=== PATIENT | male | born 1965 | race Caucasian/White ===

== ENCOUNTER 2018-08-17 23:29 | Emergency (ER) | payer OTHER ==
[2018-08-17] MEDS ORDERED: Sodium Chloride 0.9% 1,000 ML IV SCH (23:45)
[2018-08-17] MEDS ORDERED: Ondansetron 4 MG/2 ML SDV IVPUSH ONE (23:46)
[2018-08-17] MEDS ORDERED: HYDROmorphone 0.5 MG/0.5 ML Syringe IVPUSH ONE (23:46)
--- NOTE | 2018-08-18 01:12 | EDM.PDOC ---
ED HPI GENERAL MEDICAL PROBLEM - General Chief Complaint: Abdominal Pain Stated Complaint: ABDOMINAL PAIN Time Seen by Provider: 08/17/18 23:35 Source of Information: Reports: Patient, Family History Limitations: Reports: No Limitations - History of Present Illness INITIAL COMMENTS - FREE TEXT/NARRATIVE: pt is having severe rt sided abdomanal pin--mid abdoman. Onset: Other (pt had a earlier episode 2 days ago but today the pain was very severe. ) Duration: Hour(s): Location: Reports: Abdomen Associated Symptoms: Reports: Other ( severe abdomanal pain. ) lower abd Pain Score (Numeric/FACES): 8 - Related Data Allergies Allergy/AdvReac Type Severity Reaction Status Date / Time amoxicillin Allergy Rash Verified 08/17/18 23:35 Home Meds: Home Meds Omeprazole Magnesium [Prilosec Otc] 20 mg PO DAILY 08/17/18 [History] Past Medical History Gastrointestinal History: Reports: GERD - Past Surgical History GI Surgical History: Reports: Justin Fundoplication Social & Family History - Tobacco Use Smoking Status *Q: Never Smoker - Caffeine Use Caffeine Use: Reports: Coffee - Alcohol Use Days Per Week of Alcohol Use: 3 Number of Drinks Per Day: 3 Total Drinks Per Week: 9 - Recreational Drug Use Recreational Drug Use: No ED ROS GENERAL - Review of Systems Review Of Systems: See Below Constitutional: Reports: No Symptoms HEENT: Reports: No Symptoms Respiratory: Reports: No Symptoms Cardiovascular: Reports: No Symptoms Endocrine: Reports: No Symptoms GI/Abdominal: Reports: Abdominal Pain Musculoskeletal: Reports: No Symptoms Skin: Reports: No Symptoms ED EXAM, GI/ABD - Physical Exam Exam: See Below Text/Narrative:: pt arrived with pain in the midto upper abdoman. He states this came on very acutely tonight. He did not vomit. He has had a previous [place]. He has been having normal bms. He does have alot of Gerd. Exam Limited By: No Limitations General Appearance: Alert, Moderate Distress Ears: Normal TMs Nose: Normal Inspection Throat/Mouth: Normal Inspection Head: Atraumatic Neck: Normal Inspection Respiratory/Chest: No Respiratory Distress Cardiovascular: Regular Rate, Rhythm GI/Abdominal Exam: Other (pt complains of pain in the area just below the umbilus. He is tender in the epigastric area. ) (Male) Exam: Deferred Rectal (Males) Exam: Deferred Back Exam: Normal Inspection Extremities: Normal Inspection Neurological: Alert, Oriented, Normal Cognition Psychiatric: Normal Affect Course - Vital Signs Last Recorded V/S: Last Vital Signs Temp 36.1 C 08/18/18 01:39 Pulse 76 08/18/18 01:39 Resp 16 08/18/18 01:39 BP 133/87 08/18/18 01:39 Pulse Ox 100 08/18/18 01:39 - Orders/Labs/Meds Orders: Active Orders 24 hr Category Date Time Status Sodium Chloride 0.9% [Normal Saline] 1,000 ml Med 08/17/18 23:45 Active IV ASDIRECTED Sodium Chloride 0.9% [Normal Saline] 1,000 ml Med 08/18/18 01:15 Active IV ASDIRECTED Medication Orders Sodium Chloride (Normal Saline) 1,000 mls @ 999 mls/hr IV ASDIRECTED OSMIN Last Admin: 08/18/18 00:06 Dose: 999 mls/hr Sodium Chloride (Normal Saline) 1,000 mls @ 999 mls/hr IV ASDIRECTED OSMIN Last Admin: 08/18/18 01:16 Dose: 999 mls/hr Labs: Laboratory Tests 08/17/18 08/17/18 08/17/18 Range/Units 23:47 23:55 23:55 WBC 4.2 L (4.5-11.0) K/uL RBC 4.53 (4.30-5.90) M/uL Hgb 14.2 (12.0-15.0) g/dL Hct 41.3 (40.0-54.0) % MCV 91 (80-98) fL MCH 31 (27-31) pg MCHC 34 (32-36) % Plt Count 178 (150-400) K/uL Neut % (Auto) 56 (36-66) % Lymph % (Auto) 34 (24-44) % [place] % (Auto) 8 H (2-6) % Eos % (Auto) 2 (2-4) % Baso % (Auto) 0 (0-1) % Sodium 141 (140-148) mmol/L Potassium 4.1 (3.6-5.2) mmol/L Chloride 104 (100-108) mmol/L Carbon Dioxide 27 (21-32) mmol/L Anion Gap 9.6 (5.0-14.0) mmol/L BUN 14 (7-18) mg/dL Creatinine 1.1 (0.8-1.3) mg/dL Est Cr Clr Drug Dosing 94.25 mL/min Estimated GFR (MDRD) > 60 (>60) Glucose 102 (74-106) mg/dL Calcium 8.8 (8.5-10.1) mg/dL Total Bilirubin 0.6 (0.2-1.0) mg/dL AST 12 L (15-37) U/L ALT 18 (12-78) U/L Alkaline Phosphatase 52 (46-116) U/L C-Reactive Protein 0.05 (0.0-0.3) mg/dL Total Protein 7.0 (6.4-8.2) g/dL Albumin 3.8 (3.4-5.0) g/dL Globulin 3.2 (2.3-3.5) g/dL Albumin/Globulin Ratio 1.2 (1.2-2.2) Amylase (25-115) U/L Lipase 137 (73-393) U/L Urine Color Urine Appearance Urine pH (4.5-8.0) Ur Specific [place] (1.008-1.030) Urine Protein (NEGATIVE) mg/dL Urine Glucose (UA) (NEGATIVE) mg/dL Urine Ketones (NEGATIVE) mg/dL Urine Occult Blood (NEGATIVE) Urine Nitrite (NEGAITVE) Urine Bilirubin (NEGATIVE) Urine Urobilinogen (NORMAL) mg/dL Ur Leukocyte Esterase (NEGATIVE) Urine RBC (0-5) Urine WBC (0-5) Ur Epithelial Cells Amorphous Sediment Urine Bacteria Urine Mucus 08/17/18 08/18/18 Range/Units 23:55 01:02 WBC (4.5-11.0) K/uL RBC (4.30-5.90) M/uL Hgb (12.0-15.0) g/dL Hct (40.0-54.0) % MCV (80-98) fL MCH (27-31) pg MCHC (32-36) % Plt Count (150-400) K/uL Neut % (Auto) (36-66) % Lymph % (Auto) (24-44) % [place] % (Auto) (2-6) % Eos % (Auto) (2-4) % Baso % (Auto) (0-1) % Sodium (140-148) mmol/L Potassium (3.6-5.2) mmol/L Chloride (100-108) mmol/L Carbon Dioxide (21-32) mmol/L Anion Gap (5.0-14.0) mmol/L BUN (7-18) mg/dL Creatinine (0.8-1.3) mg/dL Est Cr Clr Drug Dosing mL/min Estimated GFR (MDRD) (>60) Glucose (74-106) mg/dL Calcium (8.5-10.1) mg/dL Total Bilirubin (0.2-1.0) mg/dL AST (15-37) U/L ALT (12-78) U/L Alkaline Phosphatase (46-116) U/L C-Reactive Protein (0.0-0.3) mg/dL Total Protein (6.4-8.2) g/dL Albumin (3.4-5.0) g/dL Globulin (2.3-3.5) g/dL Albumin/Globulin Ratio (1.2-2.2) Amylase 41 (25-115) U/L Lipase (73-393) U/L Urine Color Yellow Urine Appearance Clear Urine pH 7.0 (4.5-8.0) Ur Specific [place] 1.010 (1.008-1.030) Urine Protein Negative (NEGATIVE) mg/dL Urine Glucose (UA) Normal (NEGATIVE) mg/dL Urine Ketones Negative (NEGATIVE) mg/dL Urine Occult Blood Negative (NEGATIVE) Urine Nitrite Negative (NEGAITVE) Urine Bilirubin Negative (NEGATIVE) Urine Urobilinogen Normal (NORMAL) mg/dL Ur Leukocyte Esterase Negative (NEGATIVE) Urine RBC 0-5 (0-5) Urine WBC 0-5 (0-5) Ur Epithelial Cells Few Amorphous Sediment Not seen Urine Bacteria Few Urine Mucus Moderate Meds: Medications Generic Name Dose Route Start Last Admin Trade Name Freq PRN Reason Stop Dose Admin Sodium Chloride 1,000 mls @ 999 mls/hr 08/17/18 23:45 08/18/18 00:06 Normal Saline IV 999 mls/hr ASDIRECTED OSMIN Administration Sodium Chloride 1,000 mls @ 999 mls/hr 08/18/18 01:15 08/18/18 01:16 Normal Saline IV 999 mls/hr ASDIRECTED OSMIN Administration Discontinued Medications Generic Name Dose Route Start Last Admin Trade Name Freq PRN Reason Stop Dose Admin Al Hydroxide/Mg Hydroxide 15 0 ml 08/18/18 02:11 08/18/18 02:18 ml/ Lidocaine HCl 15 ml PO 08/18/18 02:12 30 ml ONETIME ONE Administration Hydromorphone HCl 0.5 mg 08/17/18 23:46 08/18/18 00:04 Dilaudid IVPUSH 08/17/18 23:47 0.5 mg ONETIME ONE Administration Hydromorphone HCl 0.5 mg 08/18/18 01:51 08/18/18 02:18 Dilaudid IVPUSH 08/18/18 01:52 Not Given ONETIME ONE Hydromorphone HCl 1 mg 08/18/18 02:35 Dilaudid IVPUSH 08/18/18 02:36 ONETIME ONE Ondansetron HCl 4 mg 08/17/18 23:46 08/18/18 00:04 Zofran IVPUSH 08/17/18 23:47 4 mg ONETIME ONE Administration Pantoprazole Sodium 40 mg 08/18/18 02:33 Protonix Iv IVPUSH 08/18/18 02:34 ONETIME ONE - Re-Assessments/Exams Free Text/Narrative Re-Assessment/Exam: 08/18/18 02:18 pt was found to have normal lab work. His urine was clear. Lipase and amylase was normal. A cat scan of the abdoman was obtained which did not show acute problems. He does have ventral hernia but not bowel is present in it. He has a left sided inguinal hernia--direct. There is no bowel in any of the hernias. Pt was given a GI cocktail. He did not get relieve with that. 08/18/18 02:29 Departure - Departure Time of Disposition: 02:34 Disposition: Admitted As Inpatient 65 Condition: Fair Clinical Impression: Abdominal pain - Discharge Information Referrals: PCP,None [Primary Care Provider] - Forms: ED Department Discharge Care Plan Goals: admit to Dr Weiss. - My Orders Last 24 Hours: My Active Orders 08/17/18 23:45 Sodium Chloride 0.9% [Normal Saline] 1,000 ml IV ASDIRECTED 08/18/18 01:15 Sodium Chloride 0.9% [Normal Saline] 1,000 ml IV ASDIRECTED - Assessment/Plan Last 24 Hours: My Active Orders 08/17/18 23:45 Sodium Chloride 0.9% [Normal Saline] 1,000 ml IV ASDIRECTED 08/18/18 01:15 Sodium Chloride 0.9% [Normal Saline] 1,000 ml IV ASDIRECTED
[2018-08-18] MEDS ORDERED: Sodium Chloride 0.9% 1,000 ML IV SCH ×3 (01:15→03:30)
[2018-08-18] MEDS ORDERED: HYDROmorphone 0.5 MG/0.5 ML Syringe IVPUSH ONE (01:51)
--- NOTE | 2018-08-18 01:55 | CRLCT ---
INDICATION: Right-sided abdominal pain TECHNIQUE: CT abdomen and pelvis without contrast. COMPARISON: None. FINDINGS: Lower chest: Trace subsegmental atelectasis lung bases. Coronary atherosclerosis. Small hiatal hernia status post gastroesophageal surgery. Liver: Normal in size and attenuation. No masses. Gallbladder and bile ducts: No stones or inflammation. No biliary dilatation. Pancreas: Mild pancreatic atrophy. Spleen: Normal in size. No masses. Adrenal glands: Normal in size. No nodules. Kidneys: 9 millimeter cyst at the upper pole right kidney. 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 GI tract: Hiatal hernia status post gastroesophageal surgery. No dilated loops of large or small intestine. The appendix is identified and is unremarkable. Vasculature: Minimal atherosclerosis without abdominal aortic aneurysm. Lymph nodes: No lymphadenopathy. Abdominal wall/Omentum/Peritoneum: Fat containing epigastric ventral hernia. Fat containing left direct inguinal hernia. Pelvis: Unremarkable. No pelvic masses. Bones: Degenerative disc disease lumbar spine. IMPRESSION: 1. No evidence of hydronephrosis or nephrolithiasis. 2. No acute findings to explain the patient`s abdominal pain. No dilated bowel or focal inflammation. 3. Fat containing ventral epigastric and left direct inguinal hernias. 4. Hiatal hernia. Please note that all CT scans at this facility use dose modulation, iterative reconstruction, and/or weight-based dosing when appropriate to reduce radiation dose to as low as reasonably achievable. Dictated by Art Collins MD @ Aug 18 2018 1:46AM Signed by Dr. Art Collins @ Aug 18 2018 1:54AM
[2018-08-18] MEDS ORDERED: Alum Hydrox/Mag Hydrox/Simeth 15 ML, Lidocaine 2% 15 ML PO ONE ×2 (02:11)
[2018-08-18] MEDS ORDERED: Pantoprazole 40 MG Vial IVPUSH ONE (02:33)
[2018-08-18] MEDS ORDERED: HYDROmorphone 1 MG/ML Syringe IVPUSH ONE (02:35)
[2018-08-18] MEDS ORDERED: Ondansetron 4 MG/2 ML SDV IV PRN (03:20)
[2018-08-18] MEDS ORDERED: HYDROmorphone 1 MG/ML Syringe IVPUSH PRN (03:25)
--- NOTE | 2018-08-18 04:05 | HP ---
CHIEF COMPLAINT: Epigastric abdominal pain. HISTORY OF PRESENT ILLNESS: A 53-year-old who 2 days ago had some mid upper abdominal discomfort, was able to get through it, doing fine until tonight where he had to get up to go to the bathroom and then could not get back to sleep because he started having periumbilical pain, epigastric pain, came into the emergency room for further evaluation. Denies any significant nausea or vomiting. No diarrhea or constipation, bloody black stools. No urinary problems. No fevers. He is status post Justin fundoplication about 15 years ago for reflux and has had ongoing problems with reflux and has maintained on omeprazole. PAST MEDICAL HISTORY: Gastroesophageal reflux disease. PAST SURGICAL HISTORY: Only surgery is Justin fundoplication about 15 years ago. ALLERGIES: AMOXICILLIN. SOCIAL HISTORY: Does drink 3 times a week. No tobacco. FAMILY HISTORY: Noncontributory. REVIEW OF SYSTEMS: Denies headaches, vision changes, upper respiratory symptoms. No chest pain, shortness of breath or cough. No nausea. He does have abdominal pain. No diarrhea or constipation or bloody black stools. No urinary problems reported. Swelling in his legs. No skin problems reported. No neurologic complaints reported. OBJECTIVE: VITAL SIGNS: Weight 104 kg, temperature 36.1, pulse 57 to 76, blood pressure 99/60 to 133/87, respirations 16 to 20, and O2 saturation 99% on room air. HEENT: Pharynx clear. NECK: Supple. No adenopathy or thyromegaly. LUNGS: Clear. HEART: Regular without murmurs. ABDOMEN: Soft, but did have epigastric pain and some periumbilical pain, but the worse was in the epigastric area. There was no mass or organomegaly palpated. EXTREMITIES: No edema. SKIN: Negative. NEURO: Cranial nerves 2 through 12 grossly intact. Alert and oriented x3. IMAGING STUDIES: CT scan of the abdomen showed no abnormalities. LABORATORY DATA: White count 4.2, hemoglobin 14.2 and platelets 178,000. Sodium 141, potassium 4.1, chloride 104, BUN 14, creatinine 1.1, and glucose 102. Liver functions were normal. Amylase and lipase were normal. Urinalysis normal. ASSESSMENT AND PLAN: Epigastric abdominal pain, exact etiology uncertain but has had history of reflux in the past with failed Justin fundoplication. We will admit him for pain control. He has received IV Dilaudid in the ER, which we can continue. He has been started on IV Protonix and Zofran available for nausea. We will admit him under observation and anticipate less than 2 midnight stays and will consult Surgery in the morning about upper endoscopy. Rishabh Weiss MD /[id number]
[2018-08-18] MEDS ORDERED: Pantoprazole 40 MG Vial IV SCH (15:00)
== END 2018-08-18 11:30 | disposition home or self-care (01) ==
LOC: JP.ED 23:29 → JP.MS 08-18 03:20
PROVIDERS: ADMIT Family Medicine; ATTEND Family Medicine
DX: R10.33 Periumbilical pain (principal); R10.13 Epigastric pain; Z88.1 Allergy status to other antibiotic agents; Z79.899 Other long term (current) drug therapy
CPT/HCPCS: 36415; 74176; 80053; 81001; 82150; 83690; 85025; 86140; 96361; 96374; 96375; 99284; A9270; C9113; J1170; J2405; J7030